=== PATIENT | male | born 1990 | race Hispanic/Latino ===

== ENCOUNTER 2023-02-26 17:39 | Emergency (ER) | payer OTHER ==
[~2023-02-26] VITALS: Ht 177.8 cm; Wt 117.1 kg
[2023-02-26] MEDS ORDERED: BACTRIM 160MG/800MG DS TAB PO ONE (18:45)
[2023-02-26] MEDS ORDERED: CEPHALEXIN 500 MG CAP PO ONE (18:45)
[2023-02-26 19:07] LABS: BASO % 0.2 % (0.0-1.0); EOS # 0.1 10^3/uL (0.0-0.5); EOS % 1.4 % (0.0-3.0); HEMATOCRIT 40.1 % (42.0-52.0); LYMPH # 1.5 10^3/uL (1.5-5.0); LYMPH % 16.9 % (24.0-44.0); MEAN CORPUSCULAR HEMOGLOBIN 30.7 pg (27.0-33.0); MEAN CORPUSCULAR HGB CONC 32.4 g/dl (32.0-36.5); MEAN CORPUSCULAR VOLUME 94.8 fl (80.0-96.0); MONO # 0.6 10^3/uL (0.0-0.8); MONO % 6.3 % (2.0-8.0); NEUTROPHILS # 6.5 10^3/uL (1.5-8.5); NEUTROPHILS % 74.9 % (36.0-66.0); PLATELET COUNT, AUTOMATED 213 10^3/uL (150-450); RED BLOOD COUNT 4.23 10^6/uL (4.30-6.10); WHITE BLOOD COUNT 8.7 10^3/uL (4.0-10.0)
[2023-02-26 19:21] LABS: PROTHROMBIN TIME 13.4 SECONDS (12.5-14.5)
[2023-02-26 19:22] LABS: PARTIAL THROMBOPLASTIN TIME 30.8 SECONDS (24.8-34.2)
[2023-02-26 19:31] LABS: BLOOD UREA NITROGEN 12 MG/DL (9-23); CALCIUM LEVEL 9.2 MG/DL (8.5-10.1); CARBON DIOXIDE LEVEL 28 MMOL/L (20-31); CHLORIDE LEVEL 105 MMOL/L (98-107); CREATININE FOR GFR 0.99 MG/DL (0.70-1.30); GLOMERULAR FILTRATION RATE > 60.0 (>60); GLUCOSE, FASTING 97 MG/DL (60-100); POTASSIUM SERUM 4.2 MMOL/L (3.5-5.1); SODIUM LEVEL 139 MMOL/L (136-145)
[2023-02-26] MEDS ORDERED: AMOX500C PO (20:04)
[2023-02-26] MEDS ORDERED: IBUP80TA PO (20:04)
[2023-02-26] MEDS ORDERED: BACT800T5 PO (21:00)
[2023-02-26] MEDS ORDERED: IBUP-1022 PO (21:00)
[2023-02-26] MEDS ORDERED: CEPH500T PO (21:00)
[2023-02-26 21:06] VITALS: BP 129/70
== END 2023-02-26 21:07 | disposition home or self-care (01) ==
LOC: M ED 17:39
DX: S81.812A Laceration without foreign body, left lower leg, initial encounter (principal); W19.XXXA Unspecified fall, initial encounter; Y92.89 Other specified places as the place of occurrence of the external cause; Y93.89 Activity, other specified; Y99.8 Other external cause status

== ENCOUNTER 2023-08-04 19:18 | Emergency (ER) | payer OTHER ==
[~2023-08-04] VITALS: Ht 177.8 cm; Wt 123.5 kg
[~2023-08-04 19:18] MED LIST: AMOX500C PO; BACT800T5 PO; CEPH500T PO; IBUP-1022 PO; IBUP80TA PO
[2023-08-04 19:20] VITALS: TEMP 98.4
[2023-08-05 00:14] VITALS: BP 134/73; O2SAT 100
== END 2023-08-05 00:15 | disposition home or self-care (01) ==
LOC: M ED 19:18
DX: S00.33XA Contusion of nose, initial encounter (principal); R04.0 Epistaxis; W01.198A Fall on same level from slipping, tripping and stumbling with subsequent striking against other object, initial encounter; Y92.138 Other place on military base as the place of occurrence of the external cause; Y93.02 Activity, running; Y99.1 Military activity; F17.290 Nicotine dependence, other tobacco product, uncomplicated